=== PATIENT | female | born 1970 | race Caucasian/White ===

== ENCOUNTER 2016-05-16 14:11 | Inpatient (IN) ==
[2016-05-16 14:29] LABS: Basophils # 0.1 K/mcL (0.0-0.2); Basophils % 0.3 %; Eosinophils # 0.1 K/mcL (0.0-0.6); Eosinophils % 0.2 %; Hematocrit 38.4 % (35.3-44.9); Hemoglobin 12.7 g/dL (11.5-15.4); Immature Granulocytes % 0.4 % (0-4); Lymphocytes # 2.7 K/mcL (0.6-4.6); Lymphocytes % 11.9 %; Mean Corpuscular HGB Conc 33.1 g/dL (31.6-35.5); Mean Corpuscular Hemoglobin 29.5 pg (28.0-33.3); Mean Corpuscular Volume 89.3 fL (83.0-100.0); Mean Platelet Volume 10.3 fL (9.4-12.4); Monocytes % 4.2 %; Platelet Count 229 K/mcL (140-400); Red Cell Distribution Width 12.3 % (11.5-14.5)
[2016-05-16 14:44] LABS: BUN/Creatinine Ratio 20 (6-26); Blood Urea Nitrogen 15 mg/dL (7-20); Calcium 9.4 mg/dL (8.6-10.8); Carbon Dioxide 24 mEq/L (19-29); Chloride 96 mEq/L (98-109); Glucose 99 mg/dL (70-99); Osmolality,Calculated 279 (280-300); Potassium 4.4 mEq/L (3.5-4.5); Sodium 134 mEq/L (136-145); eGFR For African Americans > 60 (> 60); eGFR For Non-African Americans > 60 (> 60)
--- NOTE | 2016-05-16 14:54 | Emergency Department Note ---
Disposition Clinical Impression: Community acquired pneumonia, Asthma, Sepsis, Hypoxemia, Wheezing Disposition: Admitted As Inpatient Referrals: NO,PCP [Primary Care Provider] - Forms: ED Satisfaction Letter General Adult HPI - General Chief complaint: ED Shortness of Breath/Dyspnea Stated complaint: sob, chest pain Time Seen by Provider: 05/16/16 14:49 Source: patient Limitations: no limitations - History of Present Illness HPI Narrative: 46-year-old female with a history of asthma reports emergency department complaining of a cough and shortness of breath which is been progressively worse for about a month. The patient took 2 or 3 breathing treatments today and is been persistently dyspneic. She has had some chest pain when breathing in and out. She has no previous history of cancer coronary disease PE or DVT. The patient's had no abdominal pain vomiting or diarrhea. There is no history of coughing up blood-like swelling or pain or syncope. Patient reports she has had recurrent pneumonia. Her corroborates the story. There is no history of confusion or difficulty moving the arms or legs and apparently no rash or urinary symptoms. She denies . Persistent cough, dyspnea, and chest pain associated with breathing and mouth are noted. Onset (ago): day(s) Pain Scale: 10 - Related Data Allergies Allergy/AdvReac Type Severity Reaction Status Date / Time No Known Allergies Allergy Verified 05/16/16 14:16 All systems ED: reviewed and negative except as stated. Past Medical History - Past Medical History Medical history: Reports: asthma, other (Pneumonia) - Social History Smoking Status: Never smoker Smokeless Tobacco Status: No Alcohol use: Reports: none Drug use: Reports: none Physical Exam - General Limitations: no limitations General appearance: alert, in no apparent distress - Head Head exam: atraumatic, normocephalic, normal inspection - Eye Eye exam: Present: normal appearance, PERRL, EOMI. Absent: scleral icterus, conjunctival injection - ENT ENT exam: normal exam, normal oropharynx, mucous membranes moist, TM's normal bilaterally, normal external ear exam - Neck Neck exam: Present: normal inspection, full ROM, trachea midline. Absent: meningismus - Chest Chest inspection: Present: symmetric chest wall rise. Absent: tenderness - Respiratory Respiratory exam: Present: wheezes. Absent: prolonged expiratory phase - Cardiovascular Cardiovascular exam: Present: normal rhythm, tachycardia - Abdominal Exam Abdominal exam: Present: soft, Non-Tender, normal bowel sounds. Absent: tenderness, distention, guarding, rebound, rigidity, pulsatile mass - Extremities Exam Extremities exam: Present: normal inspection, full ROM, normal capillary refill. Absent: tenderness, pedal edema, joint swelling, calf tenderness - Expanded Lower Extremity Exam Lower leg exam: Absent: Homans' sign Neurovascular/Tendon exam: Absent: motor deficit, sensory deficit, tendon deficit, extremity cold to touch, pallor - Back Exam Back exam: Present: normal inspection, full ROM. Absent: tenderness, CVA tenderness (R), CVA tenderness (L), vertebral tenderness - Neurological Exam Neurological exam: Present: alert, oriented X3, CN II-XII intact. Absent: motor sensory deficit - Psychiatric Psychiatric exam: Present: normal affect, normal mood - Skin Skin exam: Present: warm, dry, intact, normal color. Absent: rash, cyanosis, diaphoresis, erythema, pallor, mottled Course Vital Signs Temperature 99.4 F 05/16/16 14:13 Pulse Rate 134 05/16/16 14:13 Respiratory Rate 18 05/16/16 14:13 Blood Pressure 124/73 05/16/16 14:13 O2 Sat by Pulse Oximetry 93 L 05/16/16 14:13 Temperature 99.4 F 05/16/16 14:13 Pulse Rate 115 05/16/16 16:27 Respiratory Rate 20 05/16/16 16:27 Blood Pressure 107/68 05/16/16 16:27 O2 Sat by Pulse Oximetry 94 L 05/16/16 16:27 Oxygen Delivery Oxygen Delivery Nasal Cannula Medical Decision Making - [facility] Narrative Medical decision making narrative: The patient has no baseline oxygen requirement without oxygen desaturation to the high 80s percentile. She was given a DuoNeb here, a chest x-ray was negative, however as her dimer was very elevated so a CTA was performed which shows bilateral pneumonia. Continue oxygen therapy was provided. Lactic acid is being drawn. Blood cultures been requested. Solu-Medrol was given IV. Normal saline was bolused, Levaquin was ordered. Given the patient's persistent wheezing with a history of asthma and apparent failed outpatient therapy and notable hypoxemia with bilateral lung disease/pneumonia and meeting Sirs/sepsis criteria, I thought the patient would be best admitted to the hospital. I reviewed with the hospitalist on-call. - Lab Data Lab results reviewed: Yes I reviewed the patient's lab results. Result diagrams: 05/16/16 14:22 05/16/16 14:22 Lab Results 05/16/16 05/16/16 05/16/16 Range/Units 14:22 14:22 14:22 WBC 22.9 H (4.3-11.1) K/mcL RBC 4.30 (3.82-4.97) M/mcL Hgb 12.7 (11.5-15.4) g/dL Hct 38.4 (35.3-44.9) % MCV 89.3 (83.0-100.0) fL MCH 29.5 (28.0-33.3) pg MCHC 33.1 (31.6-35.5) g/dL RDW 12.3 (11.5-14.5) % Plt Count 229 (140-400) K/mcL MPV 10.3 (9.4-12.4) fL Immature Gran % 0.4 (0-4) % Seg Neutrophils % 83.0 % Lymphocytes % 11.9 % Monocytes % 4.2 % Eosinophils % 0.2 % Basophils % 0.3 % Neutrophils # 19.0 H (1.6-8.9) K/mcL Lymphocytes # 2.7 (0.6-4.6) K/mcL Monocytes # 1.0 (0.0-1.3) K/mcL Eosinophils # 0.1 (0.0-0.6) K/mcL Basophils # 0.1 (0.0-0.2) K/mcL PT (9.4-12.1) Seconds INR APTT (26.0-36.0) Seconds D-Dimer (0-500) ng/mLFEU Sodium 134 L (136-145) mEq/L Potassium 4.4 (3.5-4.5) mEq/L Chloride 96 L (98-109) mEq/L Carbon Dioxide 24 (19-29) mEq/L BUN 15 (7-20) mg/dL Creatinine 0.75 (0.57-1.11) mg/dL Est GFR ( Amer) > 60 (> 60) Est GFR (Non-Af Amer) > 60 (> 60) BUN/Creatinine Ratio 20 (6-26) Glucose 99 (70-99) mg/dL Calculated Osmolality 279 L (280-300) Lactic Acid (0.5-2.2) mmol/L Calcium 9.4 (8.6-10.8) mg/dL Total Bilirubin (0.2-1.2) mg/dL Direct Bilirubin (0.0-0.5) mg/dL Indirect Bilirubin (0.0-1.2) mg/dL AST (5-34) Units/L ALT (0-55) Units/L Alkaline Phosphatase (38-126) Units/L Troponin I 0.00 (0-0.03) ng/mL C-Reactive Protein (Less than 5) mg/L B-Natriuretic Peptide (0-100) pg/mL Serum Total Protein (6.0-8.3) g/dL Albumin (3.5-5.0) g/dL Globulin (2.4-3.5) g/dL Albumin/Globulin Ratio (1.1-2.2) 05/16/16 05/16/16 05/16/16 Range/Units 14:22 14:22 14:22 WBC (4.3-11.1) K/mcL RBC (3.82-4.97) M/mcL Hgb (11.5-15.4) g/dL Hct (35.3-44.9) % MCV (83.0-100.0) fL MCH (28.0-33.3) pg MCHC (31.6-35.5) g/dL RDW (11.5-14.5) % Plt Count (140-400) K/mcL MPV (9.4-12.4) fL Immature Gran % (0-4) % Seg Neutrophils % % Lymphocytes % % Monocytes % % Eosinophils % % Basophils % % Neutrophils # (1.6-8.9) K/mcL Lymphocytes # (0.6-4.6) K/mcL Monocytes # (0.0-1.3) K/mcL Eosinophils # (0.0-0.6) K/mcL Basophils # (0.0-0.2) K/mcL PT 12.5 H (9.4-12.1) Seconds INR 1.2 APTT 27.3 (26.0-36.0) Seconds D-Dimer 2313 H (0-500) ng/mLFEU Sodium (136-145) mEq/L Potassium (3.5-4.5) mEq/L Chloride (98-109) mEq/L Carbon Dioxide (19-29) mEq/L BUN (7-20) mg/dL Creatinine (0.57-1.11) mg/dL Est GFR ( Amer) (> 60) Est GFR (Non-Af Amer) (> 60) BUN/Creatinine Ratio (6-26) Glucose (70-99) mg/dL Calculated Osmolality (280-300) Lactic Acid (0.5-2.2) mmol/L Calcium (8.6-10.8) mg/dL Total Bilirubin 0.8 (0.2-1.2) mg/dL Direct Bilirubin 0.3 (0.0-0.5) mg/dL Indirect Bilirubin 0.5 (0.0-1.2) mg/dL AST 19 (5-34) Units/L ALT 10 (0-55) Units/L Alkaline Phosphatase 81 (38-126) Units/L Troponin I (0-0.03) ng/mL C-Reactive Protein 162 H (Less than 5) mg/L B-Natriuretic Peptide < 10 (0-100) pg/mL Serum Total Protein 7.5 (6.0-8.3) g/dL Albumin 3.5 (3.5-5.0) g/dL Globulin 4.0 H (2.4-3.5) g/dL Albumin/Globulin Ratio 0.9 L (1.1-2.2) 05/16/16 Range/Units 17:10 WBC (4.3-11.1) K/mcL RBC (3.82-4.97) M/mcL Hgb (11.5-15.4) g/dL Hct (35.3-44.9) % MCV (83.0-100.0) fL MCH (28.0-33.3) pg MCHC (31.6-35.5) g/dL RDW (11.5-14.5) % Plt Count (140-400) K/mcL MPV (9.4-12.4) fL Immature Gran % (0-4) % Seg Neutrophils % % Lymphocytes % % Monocytes % % Eosinophils % % Basophils % % Neutrophils # (1.6-8.9) K/mcL Lymphocytes # (0.6-4.6) K/mcL Monocytes # (0.0-1.3) K/mcL Eosinophils # (0.0-0.6) K/mcL Basophils # (0.0-0.2) K/mcL PT (9.4-12.1) Seconds INR APTT (26.0-36.0) Seconds D-Dimer (0-500) ng/mLFEU Sodium (136-145) mEq/L Potassium (3.5-4.5) mEq/L Chloride (98-109) mEq/L Carbon Dioxide (19-29) mEq/L BUN (7-20) mg/dL Creatinine (0.57-1.11) mg/dL Est GFR ( Amer) (> 60) Est GFR (Non-Af Amer) (> 60) BUN/Creatinine Ratio (6-26) Glucose (70-99) mg/dL Calculated Osmolality (280-300) Lactic Acid 0.8 (0.5-2.2) mmol/L Calcium (8.6-10.8) mg/dL Total Bilirubin (0.2-1.2) mg/dL Direct Bilirubin (0.0-0.5) mg/dL Indirect Bilirubin (0.0-1.2) mg/dL AST (5-34) Units/L ALT (0-55) Units/L Alkaline Phosphatase (38-126) Units/L Troponin I (0-0.03) ng/mL C-Reactive Protein (Less than 5) mg/L B-Natriuretic Peptide (0-100) pg/mL Serum Total Protein (6.0-8.3) g/dL Albumin (3.5-5.0) g/dL Globulin (2.4-3.5) g/dL Albumin/Globulin Ratio (1.1-2.2) - Radiology Data Radiology results reviewed: Yes I reviewed the patient's radiology results.
[2016-05-16] MEDS ORDERED: methylPREDNISolone 125 MG/2 ML VIAL IVP ONE (14:58)
[2016-05-16] MEDS ORDERED: Ipratropium/Albuterol Neb 3 ML IH ONE (14:58)
[2016-05-16] MEDS ORDERED: 0.9 % Sodium Chloride 1,000 ML IVC ONE ×2 (14:59→17:05)
[2016-05-16 15:41] LABS: INR 1.2; Prothrombin Time 12.5 Seconds (9.4-12.1)
[2016-05-16 15:43] LABS: Activated Partial Thrombo Time 27.3 Seconds (26.0-36.0)
[2016-05-16 15:46] LABS: Albumin 3.5 g/dL (3.5-5.0); Albumin/Globulin Ratio 0.9 (1.1-2.2); Bilirubin,Direct 0.3 mg/dL (0.0-0.5); Bilirubin,Indirect 0.5 mg/dL (0.0-1.2); Bilirubin,Total 0.8 mg/dL (0.2-1.2); Total Protein 7.5 g/dL (6.0-8.3)
[2016-05-16] MEDS ORDERED: Levofloxacin 750 MG/150 ML 750 MG/150 ML BAG IVPB ONE (17:05)
[2016-05-16] MEDS ORDERED: Acetaminophen 325 MG TABLET PO PRN (20:49)
[2016-05-16] MEDS ORDERED: *HR* Morphine 2 MG/ML SYRINGE IVP PRN (20:49)
[2016-05-16] MEDS ORDERED: *HR* HYDROcodone/Acet 5/325 mg TABLET PO PRN (20:49)
[2016-05-16] MEDS ORDERED: Ondansetron 4 MG/2 ML VIAL IVP PRN (20:49)
[2016-05-16] MEDS ORDERED: Naloxone 0.4 MG/ML INJ IVP PRN (20:49)
[2016-05-16] MEDS ORDERED: Albuterol 2.5 MG/3 ML NEBULIZER IH PRN (20:51)
--- NOTE | 2016-05-16 21:06 | Internal Med History&Physical ---
Date of Encounter: 05/16/16 Time of Encounter: 20:40 Internal Medicine - H&P: HPI Chief complaint: Shortness of breath, chest pain, fever x 1 week Admitted From: Emergency Dept Plans for Post Hospital Care: Home History of present illness: Ms. Vega is a 46 year old female with medical history significant for asthma, presents with 1 week of a cold, cough, chest pain, SOB and wheezing. She also reports high grade fever that was unrelieved by antipyretics. Cough is productive, of clear to yellow mucus. No rash or sore throat. No glandular enlargement. She reports sick contacts (her children). No recent travels. 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 She is up-to-date with influenza vaccination. No nausea, vomiting or diarrhea, no urinary or new-onset neurological symptoms. No bleeding from any orifice. She is FULL CODE as per discussion. ROS: A 10-point ROS was performed, positive and relevant negatives are detailed , system-symptom not mentioned assumed negative unless otherwise stated. Family Hx: asthma in father, mother, bother and sister. Mother has ovarian cancer, sister has uterine cancer. 2 son have Down's syndrome, another is autistic. Vital Signs Temperature 99.4 F 05/16/16 14:13 Pulse Rate 134 05/16/16 14:13 Respiratory Rate 18 05/16/16 14:13 Blood Pressure 124/73 05/16/16 14:13 O2 Sat by Pulse Oximetry 93 L 05/16/16 14:13 Temperature 99.4 F 05/16/16 14:13 Pulse Rate 115 05/16/16 16:27 Respiratory Rate 20 05/16/16 16:27 Blood Pressure 107/68 05/16/16 16:27 O2 Sat by Pulse Oximetry 94 L 05/16/16 16:27 O/E: Not in distress, she is ill but non- looking HEENT: Not pale, anicteric, afebrile, acyanotic, non-tachypneic. Chest: Scatterred wheezing, Bilateral inspiratory crackles, but 11 Heart: RRR, HS1.2 no murmur Abdomen: soft, non-tender, no masses. 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 Psychiatry: mood is good, affect is congruent, speech is normal. Thought process is logical and goal-directed. Extremities: No pedal edema, normal pedal edema, no calf tenderness. Lab Results 05/16/16 05/16/16 05/16/16 Range/Units 14:22 14:22 14:22 WBC 22.9 H (4.3-11.1) K/mcL RBC 4.30 (3.82-4.97) M/mcL Hgb 12.7 (11.5-15.4) g/dL Hct 38.4 (35.3-44.9) % MCV 89.3 (83.0-100.0) fL MCH 29.5 (28.0-33.3) pg MCHC 33.1 (31.6-35.5) g/dL RDW 12.3 (11.5-14.5) % Plt Count 229 (140-400) K/mcL MPV 10.3 (9.4-12.4) fL Immature Gran % 0.4 (0-4) % Seg Neutrophils % 83.0 % Lymphocytes % 11.9 % Monocytes % 4.2 % Eosinophils % 0.2 % Basophils % 0.3 % Neutrophils # 19.0 H (1.6-8.9) K/mcL Lymphocytes # 2.7 (0.6-4.6) K/mcL Monocytes # 1.0 (0.0-1.3) K/mcL Eosinophils # 0.1 (0.0-0.6) K/mcL Basophils # 0.1 (0.0-0.2) K/mcL PT (9.4-12.1) Seconds INR APTT (26.0-36.0) Seconds D-Dimer (0-500) ng/mLFEU Sodium 134 L (136-145) mEq/L Potassium 4.4 (3.5-4.5) mEq/L Chloride 96 L (98-109) mEq/L Carbon Dioxide 24 (19-29) mEq/L BUN 15 (7-20) mg/dL Creatinine 0.75 (0.57-1.11) mg/dL Est GFR ( Amer) > 60 (> 60) Est GFR (Non-Af Amer) > 60 (> 60) BUN/Creatinine Ratio 20 (6-26) Glucose 99 (70-99) mg/dL Calculated Osmolality 279 L (280-300) Lactic Acid (0.5-2.2) mmol/L Calcium 9.4 (8.6-10.8) mg/dL Total Bilirubin (0.2-1.2) mg/dL Direct Bilirubin (0.0-0.5) mg/dL Indirect Bilirubin (0.0-1.2) mg/dL AST (5-34) Units/L ALT (0-55) Units/L Alkaline Phosphatase (38-126) Units/L Troponin I 0.00 (0-0.03) ng/mL C-Reactive Protein (Less than 5) mg/L B-Natriuretic Peptide (0-100) pg/mL Serum Total Protein (6.0-8.3) g/dL Albumin (3.5-5.0) g/dL Globulin (2.4-3.5) g/dL Albumin/Globulin Ratio (1.1-2.2) 05/16/16 05/16/16 05/16/16 Range/Units 14:22 14:22 14:22 WBC (4.3-11.1) K/mcL RBC (3.82-4.97) M/mcL Hgb (11.5-15.4) g/dL Hct (35.3-44.9) % MCV (83.0-100.0) fL MCH (28.0-33.3) pg MCHC (31.6-35.5) g/dL RDW (11.5-14.5) % Plt Count (140-400) K/mcL MPV (9.4-12.4) fL Immature Gran % (0-4) % Seg Neutrophils % % Lymphocytes % % Monocytes % % Eosinophils % % Basophils % % Neutrophils # (1.6-8.9) K/mcL Lymphocytes # (0.6-4.6) K/mcL Monocytes # (0.0-1.3) K/mcL Eosinophils # (0.0-0.6) K/mcL Basophils # (0.0-0.2) K/mcL PT 12.5 H (9.4-12.1) Seconds INR 1.2 APTT 27.3 (26.0-36.0) Seconds D-Dimer 2313 H (0-500) ng/mLFEU Sodium (136-145) mEq/L Potassium (3.5-4.5) mEq/L Chloride (98-109) mEq/L Carbon Dioxide (19-29) mEq/L BUN (7-20) mg/dL Creatinine (0.57-1.11) mg/dL Est GFR ( Amer) (> 60) Est GFR (Non-Af Amer) (> 60) BUN/Creatinine Ratio (6-26) Glucose (70-99) mg/dL Calculated Osmolality (280-300) Lactic Acid (0.5-2.2) mmol/L Calcium (8.6-10.8) mg/dL Total Bilirubin 0.8 (0.2-1.2) mg/dL Direct Bilirubin 0.3 (0.0-0.5) mg/dL Indirect Bilirubin 0.5 (0.0-1.2) mg/dL AST 19 (5-34) Units/L ALT 10 (0-55) Units/L Alkaline Phosphatase 81 (38-126) Units/L Troponin I (0-0.03) ng/mL C-Reactive Protein 162 H (Less than 5) mg/L B-Natriuretic Peptide < 10 (0-100) pg/mL Serum Total Protein 7.5 (6.0-8.3) g/dL Albumin 3.5 (3.5-5.0) g/dL Globulin 4.0 H (2.4-3.5) g/dL Albumin/Globulin Ratio 0.9 L (1.1-2.2) 05/16/16 Range/Units 17:10 WBC (4.3-11.1) K/mcL RBC (3.82-4.97) M/mcL Hgb (11.5-15.4) g/dL Hct (35.3-44.9) % MCV (83.0-100.0) fL MCH (28.0-33.3) pg MCHC (31.6-35.5) g/dL RDW (11.5-14.5) % Plt Count (140-400) K/mcL MPV (9.4-12.4) fL Immature Gran % (0-4) % Seg Neutrophils % % Lymphocytes % % Monocytes % % Eosinophils % % Basophils % % Neutrophils # (1.6-8.9) K/mcL Lymphocytes # (0.6-4.6) K/mcL Monocytes # (0.0-1.3) K/mcL Eosinophils # (0.0-0.6) K/mcL Basophils # (0.0-0.2) K/mcL PT (9.4-12.1) Seconds INR APTT (26.0-36.0) Seconds D-Dimer (0-500) ng/mLFEU Sodium (136-145) mEq/L Potassium (3.5-4.5) mEq/L Chloride (98-109) mEq/L Carbon Dioxide (19-29) mEq/L BUN (7-20) mg/dL Creatinine (0.57-1.11) mg/dL Est GFR ( Amer) (> 60) Est GFR (Non-Af Amer) (> 60) BUN/Creatinine Ratio (6-26) Glucose (70-99) mg/dL Calculated Osmolality (280-300) Lactic Acid 0.8 (0.5-2.2) mmol/L Calcium (8.6-10.8) mg/dL Total Bilirubin (0.2-1.2) mg/dL Direct Bilirubin (0.0-0.5) mg/dL Indirect Bilirubin (0.0-1.2) mg/dL AST (5-34) Units/L ALT (0-55) Units/L Alkaline Phosphatase (38-126) Units/L Troponin I (0-0.03) ng/mL C-Reactive Protein (Less than 5) mg/L B-Natriuretic Peptide (0-100) pg/mL Serum Total Protein (6.0-8.3) g/dL Albumin (3.5-5.0) g/dL Globulin (2.4-3.5) g/dL Albumin/Globulin Ratio (1.1-2.2) CXR: no acute cardiopulmonary disease CTA: Bilateral airspace disease, right lower lobe and left upper lobe IMP Bilateral pneumonia complicating a viral bronchitis Asthma exacerbation due to above Mild dehydration. Chronic morbidities Mild-moderate intermittent asthma. PLAN Admit IV Ceftriaxone and po Levaquin IVF NS @ 100 Albuterol, scheduled and prn Prednisone 50mg po qd Famotidine 20mg po BID No indication for DVT propphylaxis, low risk. I discussed my assessment with the patient, she verbalized understanding and is agreeable to admission. She is admitted for evaluation of pneumonia and exacerbation of asthma. Past Med Surg Social Fam HX - Past Medical History Medical history: asthma, other - Past Surgical History Surgical History: appendectomy - Social History Smoking Status: Never smoker Smokeless Tobacco Status: No Alcohol use: none Drug use: none Internal Medicine - H&P: Meds Allergies No Known Allergies Allergy (Verified 05/16/16 14:16) All Systems PM: A 10-system review of systems was performed and is negative for pertinent findings except as documented above in the HPI. - Constitutional Vitals: Temp Pulse Resp BP Pulse Ox 98.7 F 98 20 101/65 92 L 05/16/16 19:30 05/16/16 19:30 05/16/16 19:30 05/16/16 19:30 05/16/16 19:30 Internal Med - H&P Results - Labs CBC & Chem 7: 05/16/16 14:22 05/16/16 14:22
[2016-05-16] MEDS: Famotidine 20 MG TABLET PO SCH (22:42)
[2016-05-16] MEDS: 0.9 % Sodium Chloride 1,000 ML IVC SCH (22:44)
[2016-05-16] MEDS: Albuterol 2.5 MG/3 ML NEBULIZER IH SCH (23:40)
[2016-05-17] MEDS: Albuterol 2.5 MG/3 ML NEBULIZER IH SCH ×4 (04:02→22:50)
[2016-05-17 08:33] LABS: Basophils % 0.2 %; Hemoglobin 11.5 g/dL (11.5-15.4); Immature Granulocytes % 1.1 % (0-4); Lymphocytes # 2.1 K/mcL (0.6-4.6); Lymphocytes % 11.2 %; Mean Corpuscular HGB Conc 31.9 g/dL (31.6-35.5); Mean Corpuscular Volume 90.9 fL (83.0-100.0); Mean Platelet Volume 10.1 fL (9.4-12.4); Monocytes # 0.5 K/mcL (0.0-1.3); Monocytes % 2.6 %; Neutrophils # 16.1 K/mcL (1.6-8.9); Platelet Count 213 K/mcL (140-400); Red Blood Count 3.96 M/mcL (3.82-4.97); Red Cell Distribution Width 12.2 % (11.5-14.5); Segmented Neutrophils % 84.9 %
[2016-05-17 08:38] LABS: BUN/Creatinine Ratio 13 (6-26); Blood Urea Nitrogen 9 mg/dL (7-20); Calcium 8.6 mg/dL (8.6-10.8); Carbon Dioxide 22 mEq/L (19-29); Chloride 105 mEq/L (98-109); Glucose 205 mg/dL (70-99); Osmolality,Calculated 289 (280-300); Potassium 3.6 mEq/L (3.5-4.5); Sodium 137 mEq/L (136-145); eGFR For African Americans > 60 (> 60); eGFR For Non-African Americans > 60 (> 60)
[2016-05-17] MEDS: Famotidine 20 MG TABLET PO SCH (08:45)
[2016-05-17] MEDS: predniSONE 20 MG TABLET PO SCH (08:45)
[2016-05-17] MEDS: 0.9 % Sodium Chloride 1,000 ML IVC SCH (08:51)
[2016-05-17] MEDS ORDERED: levoFLOXacin 500 MG TABLET PO SCH (09:00)
--- NOTE | 2016-05-17 11:47 | Internal Med Progress Note ---
Date of Encounter: 05/17/16 Time of Encounter: 10:40 - Assessment and plan (1) Community acquired pneumonia Current Visit: Yes Status: Acute Assessment and plan: Could be due to viral causes. Patient's leukocytosis is improving. Awaiting culture results. Will send for respiratory panel. Continue IV antibiotics for now. Moderate risk for complications (2) Asthma Current Visit: Yes Status: Acute Assessment and plan: This is getting better. On oral prednisone and bronchodilator nebs. CT scan does show some emphysematous changes also. No longer requiring O2 supplementation. Qualifiers: Asthma severity: mild intermittent Asthma complication type: with acute exacerbation Qualified Code(s): J45.21 - Mild intermittent asthma with (acute ) exacerbation (3) Sepsis Current Visit: Yes Status: Acute Assessment and plan: Due to pneumonia. Resolving. Blood cultures pending. Qualifiers: Sepsis type: sepsis due to unspecified organism Qualified Code(s): A41.9 - Sepsis, unspecified organism - Subjective Interval history: She is feeling better today. Shortness of breath is improving. Denies chest pain at this time. No fever overnight. - Constitutional Vitals: Temp Pulse Resp BP Pulse Ox 97.6 F 78 18 98/58 93 L 05/17/16 11:25 05/17/16 11:25 05/17/16 11:25 05/17/16 04:18 05/17/16 11:25 General appearance: Present: cooperative, mild distress, A&O X 3, answers questions appropriately - Respiratory Respiratory exam: Present: rhonchi. Absent: accessory muscle use, rales, wheezes - Cardiovascular Cardiovascular exam: Present: RRR, +S1, +S2. Absent: diastolic murmur, gallop, rubs, systolic murmur - GI/Abdominal GI/Abdominal exam: Present: normal bowel sounds, soft, no peritoneal signs. Absent: distended, tenderness - Extremities Exam Extremities exam: Present: warm, radial pulses palpable and symetrical. Absent : calf tenderness, cyanotic, pedal edema Internal Medicine: Result - Labs CBC & Chem 7: 05/17/16 08:19 05/17/16 08:19 Labs: Short CBC 05/17/16 Range/Units 08:19 WBC 19.0 H (4.3-11.1) K/mcL Hgb 11.5 (11.5-15.4) g/dL Hct 36.0 (35.3-44.9) % Plt Count 213 (140-400) K/mcL Neutrophils # 16.1 H (1.6-8.9) K/mcL BMP 05/17/16 08:19 Sodium 137 Potassium 3.6 Chloride 105 Carbon Dioxide 22 BUN 9 Creatinine 0.71 Glucose 205 H Calcium 8.6 - ABG Interpretation ABG results: PT/INR, D-dimer PT 12.5 Seconds (9.4-12.1) H 05/16/16 14:22 D-Dimer 2313 ng/mLFEU (0-500) H 05/16/16 14:22 Consult Discharge Plan - Plan Referrals: NO,PCP [Primary Care Provider] - - Attending Attestation This document has been at least partially created by [email or web address] recognition technology by Dr. Noel. Errors in grammar, wording or other phrases may exist. If errors are found after the documentation is signed, they will be addressed individually in the addendum section of this document when appropriate.
[2016-05-17 12:37] LABS: Adenovirus Not Detected (Not Detect); Bordetella Pertussis Not Detected (Not Detect); Chlamydophila pneumoniae Not Detected (Not Detect); Coronavirus 229E Not Detected (Not Detect); Coronavirus HKU1 Not Detected (Not Detect); Coronavirus NL63 Not Detected (Not Detect); Coronavirus OC43 Not Detected (Not Detect); Human Metapneumovirus Not Detected (Not Detect); Human Rhinovirus/Enterovirus Not Detected (Not Detect); Influenza A Subtype 2009 H1 Not Detected (Not Detect); Influenza A Untypeable Not Detected (Not Detect); Influenza B Not Detected (Not Detect); Mycoplasma pneumoniae Not Detected (Not Detect); Parainfluenza Virus 1 Not Detected (Not Detect); Parainfluenza Virus 2 Not Detected (Not Detect); Parainfluenza Virus 3 Not Detected (Not Detect); Parainfluenza Virus 4 Not Detected (Not Detect); Respiratory Syncytial Virus Not Detected (Not Detect)
[2016-05-18] MEDS: *HR* Heparin 5,000 UNIT/ML VIAL SQ SCH ×2 (02:46→03:15)
[2016-05-18] MEDS ORDERED: Mag Hydrox/Al Hydrox/Simeth 30 ML UDC PO ONE (04:17)
[2016-05-18] MEDS ORDERED: Famotidine 20 MG TABLET PO ONE (04:18)
[2016-05-18] MEDS: Albuterol 2.5 MG/3 ML NEBULIZER IH SCH (05:55)
[2016-05-18 06:21] LABS: Basophils % 0.2 %; Eosinophils % 0.2 %; Hematocrit 31.5 % (35.3-44.9); Immature Granulocytes % 0.8 % (0-4); Lymphocytes # 4.3 K/mcL (0.6-4.6); Mean Corpuscular HGB Conc 31.7 g/dL (31.6-35.5); Mean Corpuscular Volume 91.3 fL (83.0-100.0); Mean Platelet Volume 10.3 fL (9.4-12.4); Monocytes # 0.8 K/mcL (0.0-1.3); Monocytes % 3.8 %; Platelet Count 215 K/mcL (140-400); Red Blood Count 3.45 M/mcL (3.82-4.97); Red Cell Distribution Width 12.6 % (11.5-14.5)
[2016-05-18 06:57] VITALS: BP 103/58
[2016-05-18] MEDS: predniSONE 20 MG TABLET PO SCH (08:25)
--- NOTE | 2016-05-18 08:51 | Discharge Summary ---
Date of Encounter: 05/18/16 Time of Encounter: 08:40 - Discharge Diagnosis (1) Sepsis Priority: Primary Status: Acute Qualifiers: Sepsis type: sepsis due to unspecified organism Qualified Code(s): A41.9 - Sepsis, unspecified organism (2) Community acquired pneumonia Priority: Primary Status: Acute (3) Acute asthma exacerbation Priority: Primary Status: Acute Qualifiers: Asthma severity: unspecified severity Qualified Code(s): J45.901 - Unspecified asthma with (acute) exacerbation - Discharge Medications Prescriptions: Albuterol Sulfate [Albuterol Inhaler] 1 puff IH Q2HR PRN #1 hfa.aer.ad PRN Reason: Shortness Of Breath/Wheezing Albuterol Sulfate [Albuterol Inhaler] 1 puff IH Q4HR #1 hfa.aer.ad GuaiFENesin ER [Mucinex] 600 mg PO BID #8 tbbp.12hr Levofloxacin [Levaquin] 500 mg PO DAILY #4 tablet PredniSONE [Prednisone] 5 mg PO AD #1 tab.ds.pk Home Medications: Buprenorphine HCl/Naloxone HCl [Suboxone 8 mg-2 mg Sl Film] 1.75 film PO DAILY 05/17/16 [History] Albuterol Sulfate [Albuterol Inhaler] 1 puff IH Q2HR PRN #1 hfa.aer.ad 05/18/16 [Rx] Albuterol Sulfate [Albuterol Inhaler] 1 puff IH Q4HR #1 hfa.aer.ad 05/18/16 [Rx] GuaiFENesin ER [Mucinex] 600 mg PO BID #8 tbbp.12hr 05/18/16 [Rx] Levofloxacin [Levaquin] 500 mg PO DAILY #4 tablet 05/18/16 [Rx] PredniSONE [Prednisone] 5 mg PO AD #1 tab.ds.pk 05/18/16 [Rx] Allergies/Adverse Reactions: Allergies No Known Allergies Allergy (Verified 05/16/16 14:16) Date of admission: 05/16/16 20:49 Primary care physician: PCP NO - Patient Status Disposition: Home, Self-Care Condition: Good Functional capacity at discharge: independent ambulation Overall status at discharge: patient is progressing back to baseline - Discharge Instructions Instructions: Albuterol (By breathing), Prednisone (By mouth), Guaifenesin (By mouth), Levofloxacin (By mouth), Asthma (DC), Sepsis (DC), Pneumonia (DC) Follow Up With: [facility] [Other] - 05/24/16 10:30 am (You will be following up Dr. Juan Dwyer.Please arrive 30mins before your scheduled appointment time to fill out new patient paper work. Please bring your discharge folder, photo ID, and any medication bottles that you are currently on ) - Diet and Activity Activity: resume usual activities as tolerated Diet: regular diet Interval History: Patient feels better. She is eager to go home. Hospital course: Ms. Vega is a 46 year old female with past medical history of asthma who presented with a chief complaint shortness of breath and fever for one week. CT ) of the chest was negative for PE, bilateral wrist pain disease most pronounced in the right lung base and toilet as severe extent in the left upper lobe. Underlying emphysematous changes area and bilateral hilar and mediastinal lymphadenopathy. She was admitted for sepsis source community acquired pneumonia and asthma exacerbation. She was started on empiric antibiotics with clinical improvement. At discharge, she was ambulating and eating well. Plan: Patient was sent on Levaquin to complete a total of 7 days and a tapered dose of prednisone as well as albuterol inhalers. Patient will need a repeat CT of the chest in 6 months. PFTs in the outpatient clinic in a month. - Time Spent with Patient Total time spent providing and/or coordinating discharge services: - Constitutional Vitals: Temp Pulse Resp BP Pulse Ox 97.4 F L 59 16 103/58 91 L 05/18/16 06:57 05/18/16 06:57 05/18/16 06:57 05/18/16 06:57 05/18/16 06:57 General appearance: Present: cooperative, A&O X 3, pleasant, no acute distress, answers questions appropriately - Eye Eye exam: Present: PERRL, sclera anicteric - ENT ENT exam: Present: mucous membranes moist - Respiratory Respiratory exam: Present: wheezes (mild diffuse wheezes. good air entry bilaterally) - Cardiovascular Cardiovascular exam: Present: RRR - GI/Abdominal GI/Abdominal exam: Present: normal bowel sounds, soft. Absent: distended, tenderness - Extremities Exam Extremities exam: Absent: pedal edema - Neurological Exam Neurological exam: Present: alert, oriented X3. Absent: facial droop, speech deficit - Skin Skin exam: Absent: rash
[2016-05-18] MEDS ORDERED: Levofloxacin 500 MG/100 ML 500 MG/100 ML BAG IVPB SCH (09:00)
[2016-05-18] MEDS ORDERED: Ipratropium/Albuterol Neb 3 ML IH SCH (12:00)
--- NOTE | 2016-05-18 17:43 | Electrocardiograph Report ---
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
== END 2016-05-18 10:25 | disposition home or self-care (01) | DRG 871 ==
LOC: EMEROO 14:11 → 2ANU 14:11 → SUATTDRO 20:49
PROVIDERS: ADMIT Registered Nurse; ATTEND Internal Medicine